=== PATIENT | female | born 1955 ===

== ENCOUNTER 2018-08-03 15:45 | Emergency (ER) | payer MEDICAID ==
[2018-08-03 15:45] VITALS: BMI 30.6
[2018-08-03 15:53] VITALS: BP 150/81; PULSE 95; RESP 20; TEMP 98.8; O2SAT 96
[2018-08-03] MEDS ORDERED: Albuterol-Ipratrop 3 mg / 0.5 (3 ml) UD ONE ×3 (16:01→17:38)
[2018-08-03] MEDS ORDERED: Albuterol-Ipratrop 3 mg / 0.5 (3 ml) UD INH STA ×3 (16:32→17:22)
--- NOTE | 2018-08-03 16:40 | C.PDOC ---
History Of Present Illness 62 y/o female with pertinent PMHX of COPD presents complaining of productive cough for 1-2 weeks that has become progressively worse. She states that she had seen a pcpdue to hemoptysis and was diagnosed with Bronchitis but was not prescribed any meds per patient. She has developed worsening cough with green sputum, subjective fever, chills, headache, generalized muscle ache, nausea and 2 episodes of diarrhea. She denies any sick contacts. She denies any recent travel. She admits to history of smoking in the past but denies current use. 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) Onset/Duration Of Symptoms: Gradual Current Symptoms Are (Timing): Still Present Location Of Pain: Diffuse Myalgias, Headache Sick Contacts (Context): None Associated Symptoms: Fever, Chills, Cough, Sputum, Myalgias, Nausea, Diarrhea <Georges Andino - Last Filed: 08/03/18 19:28> <Arnaud Weeks DO - Last Filed: 08/04/18 00:17> Time Seen by Provider: 08/03/18 15:53 Chief Complaint (Nursing): Pain, Chronic Past Medical History Vital Signs: Last Vital Signs Temp 98.8 F 08/03/18 15:49 Pulse 95 H 08/03/18 15:49 Resp 20 08/03/18 15:49 BP 150/81 08/03/18 15:49 Pulse Ox 96 08/03/18 15:49 - Medical History PMH: Anemia, Asthma, Bipolar Disorder, Bronchitis, COPD, Depression, Gall Bladder Disease, HTN, Hypercholesterolemia, Kidney Stones, Osteoporosis, Parkinson's Disease, Peripheral Edema, Pneumonia Surgical History: Cholecystectomy Family History: States: Unknown Family Hx - Social History Hx Alcohol Use: No Hx Substance Use: No - Immunization History Hx Tetanus Toxoid Vaccination: No Hx Influenza Vaccination: No Hx Pneumococcal Vaccination: No <Georges Andino - Last Filed: 08/03/18 19:28> Vital Signs: Last Vital Signs Temp 98.8 F 08/03/18 15:49 Pulse 95 H 08/03/18 15:49 Resp 20 08/03/18 15:49 BP 150/81 08/03/18 15:49 Pulse Ox 96 08/03/18 19:29 <Desi Arnaud BOB - Last Filed: 08/04/18 00:17> Review Of Systems Except As Marked, All Systems Reviewed And Found Negative. Constitutional: Positive for: Fever, Chills, Malaise ENT: Negative for: Nose Discharge Cardiovascular: Negative for: Chest Pain Respiratory: Positive for: Cough, Shortness of Breath, Wheezing Gastrointestinal: Positive for: Nausea, Diarrhea. Negative for: Vomiting Neurological: Positive for: Headache <Georges Andino - Last Filed: 08/03/18 19:28> Physical Exam - Physical Exam Appears: Non-toxic Skin: Normal Color, Warm Head: Atraumatic, Normacephalic, No Tenderness Eye(s): bilateral: Normal Inspection Ear(s): Bilateral: Normal Nose: Normal Oral Mucosa: Moist Tongue: Normal Appearing Throat: Normal Neck: Normal, Supple Lymphatic: No Adenopathy Cardiovascular: Rhythm Regular Respiratory: Wheezing Gastrointestinal/Abdominal: Soft, No Tenderness Neurological/Psych: Oriented x3, Normal Speech <Georges Andino - Last Filed: 08/03/18 19:28> ED Course And Treatment - Laboratory Results Result Diagrams: 08/03/18 16:47 08/03/18 16:47 O2 Sat by Pulse Oximetry: 96 <Georges Andino - Last Filed: 08/03/18 19:28> - Laboratory Results Result Diagrams: 08/03/18 16:47 08/03/18 16:47 Lab Results: Total Bilirubin 0.5 mg/dL (0.2-1.3) 08/03/18 16:47 AST 53 U/L (14-36) H 08/03/18 16:47 ALT 35 U/L (9-52) 08/03/18 16:47 Alkaline Phosphatase 83 U/L (38-126) 08/03/18 16:47 Total Protein 7.6 g/dL (6.3-8.3) 08/03/18 16:47 Albumin 4.6 g/dL (3.5-5.0) 08/03/18 16:47 Globulin 3.0 gm/dL (2.2-3.9) 08/03/18 16:47 Albumin/Globulin Ratio 1.5 (1.0-2.1) 08/03/18 16:47 <Desi BOBArnaud - Last Filed: 08/04/18 00:17> Disposition Counseled Patient/Family Regarding: Studies Performed, Diagnosis, Need For Followup, Rx Given - Disposition Disposition Time: 19:29 <Joanne Andinojaquelin - Last Filed: 08/03/18 19:28> - Disposition Disposition Time: 18:00 <Desi BOBArnaud - Last Filed: 08/04/18 00:17> - [facility] - Disposition: HOME/ ROUTINE Condition: IMPROVED Additional Instructions: CHASTITY GREEN, thank you for letting us take care of you today. The emergency medical care you received today was directed at your acute symptoms. If you were prescribed any medication, please fill it and take as directed. It may take several days for your symptoms to resolve. Return to the Emergency Department if your symptoms worsen, do not improve, or if you have any other problems. Please contact your doctor or call one of the physicians/clinics you have been referred to that are listed on the Patient Visit Information form that is included in your discharge packet. Bring any paperwork you were given at discharge with you along with any medications you are taking to your follow up visit. Our treatment cannot replace ongoing medical care by a primary care provider outside of the emergency department. Thank you for allowing the [facility] team to be part of your care today. Follow up with your primary care doctor in 2-3 days for re-evaluation and further management. CHASTITY GREEN, travis por dejarnos cuidar de usted hoy. La atencin mdica de emergencia que recibi hoy se dirigi a jack sntomas agudos. Si le recetaron algn medicamento, llnelo y tmelo segn las indicaciones. Los sntomas pueden tardar varios green en resolverse. Regrese al Departamento de Emergencias si jack sntomas empeoran, no mejoran o si tiene otros problemas. Comunquese con hanson mdico o llame a su de los mdicos / clnicas a los que dorman sido referido que figuran en el formulario de Informacin de visita al paciente que se incluye en hanson paquete de oscar. Lleve todos los documentos que le entregaron al momento del oscar junto con todos los medicamentos que est tomando para hanson visita de seguimiento. Nuestro tratamiento no puede reemplazar la atencin mdica continua por parte de un proveedor de atencin primaria fuera del departamento de emergencias. Travis por permitir que el equipo de [facility] sea parte de hanson atencin hoy. Bakari un seguimiento con hanson mdico de atencin primaria en 2-3 green para melody reevaluacin y manejo adicional. Prescriptions: Azithromycin [Zithromax] 250 mg PO DAILY #6 tab Guaifenesin [Children's Chest Congestion] 100 mg PO Q6 PRN #1 bottle PRN Reason: Cough predniSONE [Prednisone] 40 mg PO DAILY #10 tab Instructions: Upper Respiratory Infection (ED) Forms: [facility] (Cymro) Print Language: HONG KONGER - Clinical Impression Clinical Impression: Upper respiratory infection, Bronchitis
[2018-08-03 16:50] LABS: BASO # 0.1 K/uL (0.0-0.2); BASO % 1.2 % (0.0-2.0); EOS # 0.5 K/uL (0.0-0.7); EOS % 5.1 % (0.0-4.0); HEMOGLOBIN 13.2 g/dL (11.0-16.0); LYMPH # 4.2 K/uL (1.0-4.3); LYMPH % 40.1 % (20.0-40.0); MEAN CELL VOLUME 85.2 fL (81.0-99.0); MEAN CORPUSCULAR HEMOGLOBIN 27.7 pg (27.0-31.0); MEAN CORPUSCULAR HGB CONC 32.5 g/dL (33.0-37.0); MEAN PLATELET VOLUME 9.1 fL (7.2-11.7); MONO # 0.6 K/uL (0.0-0.8); MONO % 5.4 % (0.0-10.0); NEUT # 5.1 K/uL (1.8-7.0); NEUT % 48.2 % (50.0-75.0); NRBC % 0.3 % (0.0-2.0); RBC 4.77 Mil/uL (3.80-5.20); RED CELL DISTRIBUTION WIDTH 14.9 % (11.5-14.5); WHITE BLOOD COUNT 10.6 K/uL (4.8-10.8)
[2018-08-03 17:03] LABS: BLOOD UREA NITROGEN 22 mg/dL (7-17); CALCIUM 9.3 mg/dl (8.6-10.4); GFR NON-AFRICAN AMERICAN > 60
[2018-08-03 17:16] LABS: ALB/GLOB RATIO 1.5 (1.0-2.1); ALBUMIN 4.6 g/dL (3.5-5.0); ALT/SGPT 35 U/L (9-52); AST/SGOT 53 U/L (14-36)
--- NOTE | 2018-08-03 18:25 | RAD ---
HISTORY: cough r/o infiltrate COMPARISON: Chest x-ray performed 07/21/12 TECHNIQUE: Chest PA and lateral FINDINGS: LUNGS: No focal consolidation. 4 mm right middle lobe calcified granuloma. Additional scattered smaller probable calcified granulomas. Please note that chest x-ray has limited sensitivity for the detection of pulmonary masses. PLEURA: No significant pleural effusion identified. No definite pneumothorax . CARDIOVASCULAR: Heart size appears top normal. Atherosclerotic calcifications. OSSEOUS STRUCTURES: Degenerative changes. VISUALIZED UPPER ABDOMEN: Unremarkable. OTHER FINDINGS: None. IMPRESSION: Evidence of prior granulomatous infection.
== END 2018-08-03 19:27 | disposition home or self-care (01) ==
LOC: C.ER 15:45
DX: J06.9 Acute upper respiratory infection, unspecified (principal); J40 Bronchitis, not specified as acute or chronic; I10 Essential (primary) hypertension; E78.00 Pure hypercholesterolemia, unspecified; G20 Parkinson's disease; M81.0 Age-related osteoporosis without current pathological fracture
CPT/HCPCS: 71046; 80053; 85025; 87804; 96374; 96375; 99285; J1885; J2930